=== PATIENT | female | born 1955 | race Two or more races ===

== ENCOUNTER → 2019-03-30 | Day surgery (SDC) | payer OTHER ==
[~2019-03-30] MED LIST: IV RINGERS,LACTATED 1000ML 1,000 ML IV SCH; LIDOCAINE 2% PF 5 ML VIAL. ONE; PROPOFOL 20 ML IV ONE
--- NOTE | 2019-03-30 11:40 | CONS ---
DATE OF CONSULTATION: 03/30/2019 GASTROENTEROLOGY CONSULTATION REFERRING PHYSICIAN: Adam Salcedo. REASON FOR CONSULTATION: Colorectal screening. HISTORY OF PRESENT ILLNESS: A 63-year-old female with past medical history 4, para 4 C-sections x 4 and patellar fracture repair, seen for screening colon exam. Bowel habits are regular without diarrhea or constipation. There has been no melena and/or hematochezia. Weight and appetite are stable and she is otherwise without additional complaints. PAST MEDICAL HISTORY: Status post 4 4, para 4; tobaccoism and status post patellar fracture with repair. ALLERGIES: None. MEDICATIONS: None. SOCIAL HISTORY: She is a social drinker and smoker. FAMILY HISTORY: Noncontributory for colon cancer. REVIEW OF SYSTEMS: Per records. PRESCRIPTION MEDICATIONS: None. PHYSICAL EXAMINATION: VITAL SIGNS: Temperature is 97.5, pulse 72, respiratory rate is 20. HEENT: Reveals normocephalic, atraumatic head. Pupils and extraocular muscles are not tested. Sclerae anicteric. NECK: Supple. LUNGS: Clear. CARDIOVASCULAR: Reveals an S1, S2 without S3, S4 or appreciable murmur. ABDOMEN: Reveals a soft abdomen, normal bowel sounds, without appreciable hepatosplenomegaly with infraumbilical incisions. EXTREMITIES: No cyanosis, clubbing or edema. IMPRESSION: Colorectal screening. Risks and benefits have been discussed including risk of hemorrhage and perforation during the operation, patient is willing to proceed. MARY GALVEZ MD DR: VINNY/linnea JOB#: [id number] / [id number] Mel Cruz
== END ==
LOC: SURG 07:49
PROVIDERS: ATTEND Internal Medicine Gastroenterology
DX: Z12.11 Encounter for screening for malignant neoplasm of colon (principal); K57.30 Diverticulosis of large intestine without perforation or abscess without bleeding; K64.0 First degree hemorrhoids; F17.210 Nicotine dependence, cigarettes, uncomplicated; Z72.89 Other problems related to lifestyle
CPT/HCPCS: 45378; J2001; J2704